=== PATIENT | female | born 1970 | race Hispanic/Latino ===

== ENCOUNTER 2019-09-29 07:25 | Day surgery (SDC) | payer BC ==
[2019-09-27 13:00] VITALS: BP 131/55
[2019-09-27 13:22] LABS: BASOPHILS % (AUTO) 0.5 % (0.0-5.0); EOSINOPHILS % (AUTO) 2.2 % (0.0-8.0); HEMATOCRIT 39.1 % (36-48); LYMPHOCYTES % (AUTO) 22.1 % (21.0-51.0); MEAN CORPUSCULAR HEMOGLOBIN 30.7 pg (27.0-33.0); MEAN CORPUSCULAR VOLUME 96.1 fL (79-99); MONOCYTES % (AUTO) 5.2 % (3.0-13.0); NEUTROPHILS % (AUTO) 69.5 % (40.0-77.0); PLATELET COUNT (AUTO) 253 K/uL (130-400); RED BLOOD CELL COUNT(AUTO) 4.07 MIL/uL (4.00-5.50); RED CELL DISTRIBUTION WIDTH 13.2 % (11.0-15.5); WHITE BLOOD COUNT (AUTO) 7.9 K/uL (4.8-10.8)
[2019-09-27 13:35] LABS: POTASSIUM 3.5 mmol/L (3.5-5.1)
[2019-09-27 14:00] LABS: CREATININE 0.7 mg/dL (0.5-1.5)
[2019-09-29] VITALS (12 sets, daily range): BP systolic 112–123; BP diastolic 55–81
[~2019-09-29] VITALS: Ht 149.9 cm; Wt 80.6 kg
[~2019-09-29 07:25] MED LIST: ATOR10TA69 PO; CETI10TA57 PO; EZET10TA13 PO; FAMO40TA75 PO; LACTATED RINGERS 1000ML 1,000 ML IV SCH; METF-805 PO; PREG50 PO
[2019-09-29] MEDS ORDERED: LIDOCAINE PF 2% 5ML ABBOJECT ONE (07:54)
[2019-09-29] MEDS ORDERED: PROPOFOL 10 MG/ML 20ML VIAL IV ONE (07:54)
[2019-09-29] MEDS ORDERED: ROCURONIUM 10MG/1ML SYR 10 MG/ML ML ONE (07:54)
[2019-09-29] MEDS ORDERED: FENTANYL CITRATE PF 50 MCG/1 ML 2ML VIAL ONE (07:54)
[2019-09-29] MEDS ORDERED: MIDAZOLAM HCL 1 MG/ML 2ML VIAL ONE (07:56)
[2019-09-29] MEDS ORDERED: CALDOLOR 800MG+NS 250ML 250 ML IV PRN (08:00)
[2019-09-29] MEDS ORDERED: SODIUM CHLORIDE 0.9% 1000ML 1,000 ML IV ONE (08:07)
[2019-09-29] MEDS: CEFAZOLIN SODIUM 1 GM VIAL IVP SCH ×2 (08:09→09:00)
[2019-09-29] MEDS ORDERED: CALDOLOR 800MG+NS 250ML 250 ML IV SCH (09:15)
[2019-09-29] MEDS ORDERED: NEOSTIGMINE 5MG/5ML SYR IV ONE (09:16)
[2019-09-29] MEDS ORDERED: GLYCOPYRROLATE 1 MG/5 ML SYRINGE ONE (09:16)
[2019-09-29] MEDS ORDERED: MEPERIDINE-PF 25 MG/ML SYG ONE (09:58)
[2019-09-29] MEDS ORDERED: ONDANSETRON HCL 4 MG/2 ML VIAL ONE (10:05)
== END 2019-09-29 11:12 | disposition home or self-care (01) ==
LOC: DAH 07:25
PROVIDERS: ATTEND Obstetrics & Gynecology
DX: N92.0 Excessive and frequent menstruation with regular cycle (principal); D68.61 Antiphospholipid syndrome; E11.9 Type 2 diabetes mellitus without complications; Z90.49 Acquired absence of other specified parts of digestive tract; Z98.890 Other specified postprocedural states
CPT/HCPCS: 36415; 58563; 80048; 82948 ×2; 84703; 85025; 86850; 86900; 86901; A4213; A4215; A4221; A4222; A4223; A4351; A4355; A4510; A4600; A4663; A6260; J0690; J1741; J2001; J2175; J2250; J2405; J2704; J2710; J3010; J3490; J7030 ×3

== ENCOUNTER 2020-02-12 10:00 | Inpatient (IN) | payer BC ==
[~2020-02-12] VITALS: Ht 149.9 cm; Wt 79.8 kg
[~2020-02-12 10:00] MED LIST changes: -EZET10TA13 PO; -LACTATED RINGERS 1000ML 1,000 ML IV SCH
[2020-02-12 11:26] LABS: BASOPHILS % (AUTO) 0.4 % (0.0-5.0); EOSINOPHILS % (AUTO) 0.5 % (0.0-8.0); HEMATOCRIT 46.2 % (36-48); MEAN CORPUSCULAR HEMOGLOBIN 29.5 pg (27.0-33.0); MEAN CORPUSCULAR HGB CONC 31.8 g/dL (32.0-36.0); MEAN CORPUSCULAR VOLUME 92.8 fL (79-99); MONOCYTES % (AUTO) 4.7 % (3.0-13.0); PLATELET COUNT (AUTO) 211 K/uL (130-400); RED BLOOD CELL COUNT(AUTO) 4.98 MIL/uL (4.00-5.50); RED CELL DISTRIBUTION WIDTH 13.6 % (11.0-15.5); WHITE BLOOD COUNT (AUTO) 7.4 K/uL (4.8-10.8)
[2020-02-14 12:17] VITALS: BP 150/73
[2020-02-14] MEDS ORDERED: PREG50 PO (13:01)
[2020-02-14] MEDS ORDERED: albuterol IH (13:03)
[2020-02-15] VITALS (25 sets, daily range): BP systolic 104–143; BP diastolic 46–83
[2020-02-15] MEDS: CALDOLOR 800MG+NS 250ML 250 ML IV SCH ×3 (06:00→18:12)
[2020-02-15] MEDS: CEFAZOLIN SODIUM 1 GM VIAL IVP SCH ×2 (06:00→08:10)
--- NOTE | 2020-02-15 07:00 | NUR ---
PREOP PT LAYING COMFORTABLY IN BED. PT ORIENTED TO CALL LIGHT AND GIVEN PREOP TEACHING.
[2020-02-15] MEDS ORDERED: DURAMORPH PF1 MG/ML 10ML AMP IV ONE (07:29)
[2020-02-15] MEDS ORDERED: FENTANYL CITRATE PF 50 MCG/1 ML 2ML VIAL ONE ×2 (07:29→07:33)
[2020-02-15] MEDS ORDERED: MIDAZOLAM HCL 1 MG/ML 2ML VIAL ONE (07:32)
--- NOTE | 2020-02-15 07:35 | NUR ---
OR PT TAKEN TO OR VIA BED IN NO DISTRESS
[2020-02-15] MEDS ORDERED: SUCCINYLCHOLINE CHLORIDE 20 MG/ML 10 ML VIAL ONE (07:36)
[2020-02-15] MEDS ORDERED: PROPOFOL 10 MG/ML 20ML VIAL IV ONE (07:37)
[2020-02-15] MEDS ORDERED: GLYCOPYRROLATE 1 MG/5 ML SYRINGE ONE (07:37)
[2020-02-15] MEDS ORDERED: ONDANSETRON HCL 4 MG/2 ML VIAL ONE (07:37)
[2020-02-15] MEDS ORDERED: ROCURONIUM 10MG/1ML SYR 10 MG/ML ML ONE (07:38)
[2020-02-15] MEDS ORDERED: EPHEDRINE SULFATE 50 MG/ML AMPULE ONE (07:53)
[2020-02-15] MEDS ORDERED: NEOSTIGMINE 5MG/5ML SYR IV ONE (09:15)
[2020-02-15] MEDS: LACTATED RINGERS 1000ML 1,000 ML IV SCH ×4 (09:55→18:12)
[2020-02-15] MEDS ORDERED: HYDROCODONE/ACETAMINOPHEN 5/325 MG TAB PO PRN (10:45)
[2020-02-15] MEDS ORDERED: ONDANSETRON HCL 4 MG/2 ML VIAL IVP PRN ×2 (10:45→12:15)
[2020-02-15] MEDS ORDERED: SIMETHICONE 80 MG TAB.CHEW PO PRN (10:45)
[2020-02-15] MEDS ORDERED: DOCUSATE SODIUM 100 MG CAP PO PRN (10:45)
[2020-02-15] MEDS ORDERED: BISACODYL 10 MG SUPP.RECT RC PRN ×2 (10:45)
[2020-02-15] MEDS ORDERED: ACETAMINOPHEN-CODEINE 300/30MG TAB PO PRN ×2 (10:45)
[2020-02-15] MEDS ORDERED: PROMETHAZINE HCL 25 MG/ML 1ML AMPULE IM PRN ×2 (10:45)
[2020-02-15] MEDS ORDERED: MEPERIDINE-PF 75 MG/ML SYG IM PRN (10:45)
[2020-02-15] MEDS ORDERED: DiphenhydrAMINE HCL 50 MG/ML VIAL IVP PRN (12:15)
[2020-02-15] MEDS ORDERED: NALOXONE HCL 0.4 MG/1 ML ML IVP PRN ×3 (12:15)
--- NOTE | 2020-02-15 20:00 | NUR ---
STATUS/ACTIVITY/INCENTIVE SPIROMETRY PATIENT ENCOURAGED TO TCDB, USE IS, GOOD COUGH, ASSISTED TO SIDE OF BED, DANGLED AND TOLERATED WELL, BACK TO BED AFTER 15 MIN. ENCOURAGED TO TAKE DEEP BREATHS AND TO TURN TO SIDES OFTEN, NOT TAKING FLUIDS YET, Addendum: 02/16/20 at 0058 by WAQAS MARTINEZ LVN Amended: Links added.
[2020-02-16] MEDS: CALDOLOR 800MG+NS 250ML 250 ML IV SCH (02:34)
[2020-02-16 02:45] VITALS: BP 110/61
[2020-02-16] MEDS: LACTATED RINGERS 1000ML 1,000 ML IV SCH (02:49)
--- NOTE | 2020-02-16 06:00 | NUR ---
STATUS/ HARRIS CATHETER F/C REMOVED, INTACT, TOLERATED WELL, TAKING FLUIDS BETTER, ASSISTED UP TO CHAIR, TOLERATED WELL, CALL LIGHT AT SIDE Addendum: 02/16/20 at 0645 by WAQAS MARTINEZ LVN Amended: Links added.
[2020-02-16 07:50] VITALS: BP 123/72
[2020-02-16] MEDS: SIMETHICONE 80 MG TAB.CHEW PO PRN ×3 (08:59→16:41)
[2020-02-16] MEDS: IBUPROFEN 800 MG TAB PO PRN ×2 (09:01→16:42)
[2020-02-16 16:00] VITALS: BP 124/72
--- NOTE | 2020-02-16 16:00 | NUR ---
PATIENT WAS GIVEN DISCHARGE INSTRUCTION AND VERBALIZED UNDERSTANDING INSTRUCTIONS GIVEN. PIV TO LEFT HAND WAS REMOVED AND SITE WNL. RIGHT HAND IV WAS REMOVED THIS A.M. PATIENT ENCOURAGED TO WALK AFTER DISCHARGE TO HELP WITH MOVING GASES. VERBALIZED UNDERSTANDING. IF NO BM BY A.M. PATIENT ENCOURAGED TO TAKE MILD LAXATIVE. VERBALIZED UNDERSTANDING INSTRUCTIONS GIVEN.
--- NOTE | 2020-02-16 16:30 | NUR ---
PT INDICATED WANTING TO NO WHAT WAS UNDERNEATH THE UMBILICAL TEGADERM AND SMALL ABSCESS NOTED THAT WAS DRAINING. DRESSING CHANGE DONE AND GAUZE WAS APPLIED AND PAPER TAPE USED TO COVER SITE. INCISION OPEN TO AIR AND REINFORCED CARE OF INCISION. VERBALIZED UNDERSTANDING.
--- NOTE | 2020-02-16 17:00 | NUR ---
PATIENT WAS TAKEN VIA W/C TO FAMILY VEHICLE AND DISCHARGED TO HER SPOUSE IN STABLE CONDITION. MOTRIN WAS ISSUED PRIOR TO DISCHARGE.
== END 2020-02-16 17:00 | disposition home or self-care (01) | DRG 743 ==
LOC: EDSTATUS 10:00 → DAHIP 02-15 06:08 → WSH 02-15 11:05
PROVIDERS: ADMIT Obstetrics & Gynecology; ATTEND Obstetrics & Gynecology
PROC: 0UT20ZZ Resection of Bilateral Ovaries, Open Approach (ICD-10-PCS; 2020-02-15)
PROC: 0UT90ZZ Resection of Uterus, Open Approach (ICD-10-PCS; principal; 2020-02-15 07:30)
PROC: 0UT70ZZ Resection of Bilateral Fallopian Tubes, Open Approach (ICD-10-PCS; 2020-02-15 07:30)
DX: N85.00 Endometrial hyperplasia, unspecified (principal); N93.9 Abnormal uterine and vaginal bleeding, unspecified; K66.0 Peritoneal adhesions (postprocedural) (postinfection); E66.01 Morbid (severe) obesity due to excess calories; Z20.828 Contact with and (suspected) exposure to other viral communicable diseases; J45.909 Unspecified asthma, uncomplicated; E78.5 Hyperlipidemia, unspecified; Z91.018 Allergy to other foods; Z68.35 Body mass index [BMI] 35.0-35.9, adult; Z90.49 Acquired absence of other specified parts of digestive tract; Z83.49 Family history of other endocrine, nutritional and metabolic diseases
CPT/HCPCS: 36415; 82948; 85025; 86850; 86900; 86901; A4344; G0378; J0330; J0690; J1200; J1741; J2250; J2274; J2405; J2704; J2710; J3010; J3490; J7030; J7120; U0003

== ENCOUNTER → 2021-12-04 | Outpatient (CLI) | payer BC ==
[~2021-12-04] MED LIST changes: -METF-805 PO; +METF-890 PO; +albuterol IH
== END | disposition home or self-care (01) ==
LOC: RAH 07:29
PROVIDERS: ATTEND Obstetrics & Gynecology
DX: N63.11 Unspecified lump in the right breast, upper outer quadrant (principal); R92.8 Other abnormal and inconclusive findings on diagnostic imaging of breast
CPT/HCPCS: 76641; 77065

== ENCOUNTER → 2021-12-11 | Outpatient (CLI) | payer BC ==
[2021-12-11 09:28] LABS: INR 0.95 (0.85-1.15); PROTHROMBIN TIME 10.4 SEC (9.6-11.6)
[2021-12-11 09:29] LABS: PARTIAL THROMBOPLASTIN TIME 30.7 SEC (26.3-35.5)
== END | disposition home or self-care (01) ==
LOC: RAH 08:16
PROVIDERS: ATTEND Obstetrics & Gynecology
DX: C50.411 Malignant neoplasm of upper-outer quadrant of right female breast (principal); Z79.01 Long term (current) use of anticoagulants
CPT/HCPCS: 19083; 36415; 85610; 85730